=== PATIENT | male | born 1965 | race Caucasian/White ===

== ENCOUNTER → 2021-01-17 09:56 | Outpatient (BNVA) | payer MEDICARE, SELFPAY | PROVIDERS: Visit Provider Registered Nurse | DX: Z79.899 Other long term (current) drug therapy (principal) | CPT/HCPCS: 36415; 80053; 80061; 80164; 82306; 83036; 84443 ==

== ENCOUNTER → 2022-04-16 08:56 | Outpatient (BNVA) | payer MEDICARE, SELFPAY | PROVIDERS: Visit Provider Registered Nurse | DX: Z79.899 Other long term (current) drug therapy (principal) | CPT/HCPCS: 80053; 80061; 80164; 83036; 85025 ==

== ENCOUNTER 2023-01-10 08:59 | Emergency (ER) | payer MEDICARE, MEDICAID, SELFPAY ==
[2023-01-10 09:06] VITALS: BP 171/112; PULSE 75; RESP 16; O2SAT 99; BMI 29.2
--- NOTE | 2023-01-10 09:17 | XR_ITS ---
WS: [id number] XR chest 1V portable [id number] REASON FOR EXAM: COPD FINDINGS: Except for increased tortuosity of the thoracic aorta, the chest is relatively unchanged compared to 03/22/2007. Moderate tortuosity of the thoracic aorta. Calcified granulomas disease bilaterally. Mild flattening of the hemidiaphragms. No acute pulmonary parenchymal or pleural abnormality. Mild to moderate degenerative spondylosis in the mid and lower thoracic spine. IMPRESSION: No acute chest abnormality
--- NOTE | 2023-01-10 09:17 | CT_ITS ---
WS: [id number] CT ABDOMEN PELVIS TECHNIQUE: Contrast-enhanced CT of the abdomen and pelvis with coronal and sagittal reformatted image s. CLINICAL INFORMATION: upper abd pain COMPARISON: 2006 DLP: 807.[address] scans at [facility] use at least one of these dose optimization techniques: automated e xposure control; mA and/or kV adjustment per patient size (includes targeted exams where dose is matc hed to clinical indication); or iterative reconstruction. FINDINGS: Lung bases are well aerated. Diffuse fatty filtration of the liver. Fluid distended gallbladder. No g allbladder wall thickening or pericholecystic fluid. Normal portal vein and splenic vein. Fatty atrop hy of the pancreas. Normal spleen. Normal GE junction. Adrenal glands are normal. Celiac and SMA are patent. Normal caliber abdominal aorta. Adrenal glands are normal. Normal renal parenchymal enhancement. Moderate hydronephrosis right kidney with dilatation of the right renal pelvis and calyces. This is similar in appearance compared to 200 6. No visualized obstructing right renal parenchymal or ureteral calculi. Nonobstructing right renal parenchymal calculus measuring 8 mm. No hydronephrosis in the left kidney. Large midline fat-containing umbilical hernia. Hernia mouth measures 3.2 cm. No herniated bowel. Urine distended bladder. Mild prominence of the prostate. Sigmoid diverticulosis. No evidence of acut e diverticulitis. Colon is normal in appearance. Mild distention of a few loops of fluid-filled small bowel in the left upper quadrant and left mid an d lower abdomen with mucosal enhancement can be seen with small bowel enteritis. No evidence of high- grade obstruction. IMPRESSION: 1. Moderate right hydronephrosis with right pelvicaliectasis and ureterectasis was present in 2006 w ith a similar appearance. No obstructing renal or ureteral calculi visualized. 2. Fluid distention of the gallbladder which is otherwise normal in appearance. 3. Prominent fat-containing umbilical hernia with widemouth defect measuring 3.2 cm. 4. Mild prominence of fluid filled small bowel in the left upper quadrant and left lower abdomen/pel vis with mucosal enhancement suspicious for small bowel enteritis. No evidence of small or large cele l obstruction.
--- NOTE | 2023-01-10 09:20 | W.ED.ABDPA2 ---
HPI - Abdominal Pain General: Chief Complaint: Abdominal Pain Stated Complaint: abd pain Time Seen by Provider: 01/10/23 09:07 Source: patient Mode of arrival: ambulatory Limitations: no limitations History of Present Illness: 57yo male presents with upper abdominal pain that has been ongoing for the past 1.5 weeks. Patient reports he had a bleeding ulcer in the past. States that he did have vomiting, but has not had any for the past 3 days. Patient is unable to provide descriptors of the pain. He denies fever, chills, diarrhea, black/tarry stool, bloody stool, use of blood thinners. Patient does report that he has a history of a right kidney stent back in 1994. Associated Symptoms: Denies chills, diarrhea, dysuria, fever(s), hematochezia, melena and vomiting Review of Systems Const: Denies: fever(s), chills or body aches Card: Denies: chest pain Resp: Denies: dyspnea GI: Reports: abdominal pain; Denies: vomiting, diarrhea, hematochezia or melena : Denies: flank pain, difficulty urinating or dysuria Musc: Denies: neck pain Neuro: Denies: headache(s) PFSH ED PFSH: Medical History (Updated 01/10/23 @ 11:01 by BHAKTI Up) Bipolar affective disorder, depressed, severe, with psychotic behavior Mild intellectual disabilities Nicotine dependence, cigarettes, with other nicotine-induced disorders Social History (Updated 06/29/19 @ 09:25 by Roseann Cameron LPN) Smoking and tobacco status: current every day smoker cigarettes Physical Exam Narrative: EXAM NARRATIVE: Patient is ambulatory to the exam room unassisted. He is sitting upright on stretcher in no acute distress. He is able to give history with no difficulty. No family is at bedside Const: COMMON NORMALS: no acute distress and alert GENERAL APPEARANCE: cooperative ORIENTATION/CONSCIOUSNESS: Yes awake HENMT: COMMON NORMALS: normocephalic and Normal external nose present HEAD & SCALP: normocephalic NOSE: Normal external nose present MOUTH: lip normal Eye: COMMON NORMALS: conjunctivae normal GENERAL EYE: appearance normal, both eyes and all related structures CONJUNCTIVA: Yes conjunctivae normal Neck/C-Spine: COMMON NORMALS: full ROM Chest: CHEST: Yes Symmetrical chest wall rise Resp: COMMON NORMALS: normal respiratory effort AUSCULTATION: wheezes scattered wheezes Cardio: COMMON NORMALS: regular rate and regular rhythm RATE: regular rate RHYTHM: regular rhythm GI: COMMON NORMALS: Soft to palpation INSPECTION: Yes visible herniation (umbilicus) PALPATION: Yes Soft to palpation, Yes Tenderness to palpation present (GI) Details: LUQ and RUQ and No Guarding due to palpation present (GI) : COMMON NORMALS: No no CVA tenderness BLADDER/KIDNEY EXAM: No no CVA tenderness Back/Pelvis: COMMON NORMALS: negative for no CVA tenderness and negative for thoraco-lumbar ROM normal Extremity: COMMON NORMALS: full ROM Neuro: COMMON NORMALS: moves all extremities SENSORIUM/ORIENTATION: Yes alert Psych: COMMON NORMALS: cooperative Course ED course: 1035: Bedside Hemoccult negative Reevaluation(s): Reevaluation #1: Discussed lab and imaging findings with patient. Completed Hemoccult, negative. Will proceed with dicyclomine for the abdominal discomfort Time: 10:35 Vital Signs: Vital signs: Vital Signs Pulse Rate 75 01/10/23 09:06 Respiratory Rate 16 01/10/23 09:06 Blood Pressure 171/112 01/10/23 09:06 Pulse Oximetry 99 01/10/23 09:06 Oxygen Delivery Me thod Room Air 01/10/23 09:06 MDM - Abdominal Pain Medical Decision Making 57yo male here for upper abdominal pain that has been ongoing for the past 1.5 weeks. Patient reports that he did have vomiting, but has not had any in the past 3 days. Patient is unable to describe the pain, but does report it goes across his upper abdomen. States that he has a history of a bleeding ulcer. He denies fever, chills, body aches, difficulty breathing, shortness of breath, chest pain, use of blood thinners, blood in his stool, dark/tarry stool. Patient is nontoxic in appearance. Vital signs are stable. Differentials include: Intestinal obstruction, gastritis, viral infection, incarcerated hernia, pancreatitis CBC is grossly unremarkable. CMP with a very mildly elevated sodium at 147, otherwise unremarkable. UA With an elevated pH of 8 and 3+ blood. PT is noted to be 15 seconds with an INR 1.14. Chest x-ray with no acute pulmonary or pleural abnormality. Mild to moderate degenerative spondylosis noted in the thoracic spine. Calcified granulomas bilaterally. Tortuosity of the thoracic aorta noted. Contrasted CTAP with a chronic moderate right hydronephrosis that was present in 2005, fluid distention of the gallbladder, prominent fat-containing umbilical hernia, mild prominence of fluid-filled small bowel suspicious for enteritis. No evidence of small or large bowel obstruction. Bedside hemoccult negative discussed findings with patient and family. Patient did receive dicyclomine while in the emergency department. Dicyclomine prescribed to help with the abdominal discomfort. Albuterol prescribed for wheezing, likely related to chronic tobacco use. Ondansetron prescribed for nausea. Recommend he follow-up with primary care, call Friday with an update of symptoms and to discuss recheck. Advised to return to the emergency department if any rapid worsening symptoms and as needed. Differential Diagnosis Likely abdominal pain and small bowel obstruction Lab Data I reviewed the patient's lab results. 01/10/23 09:10 01/10/23 09:10 Labs/Radiology: Laboratory Results WBC 8.6 10^3/uL (4.0-10.0) 01/10/23 09:10 RBC 5.03 10^6/uL (4.1-5.3) 01/10/23 09:10 Hgb 15.0 g/dL (11.7-16.6) 01/10/23 09:10 Hct 46.4 % (42.0-52.0) 01/10/23 09:10 MCV 92.2 fl (80-94) 01/10/23 09:10 MCH 29.8 pg (28.0-34.0) 01/10/23 09:10 MCHC 32.3 g/dL (30.0-36.0) 01/10/23 09:10 RDW 12.5 % (12.1-15.1) 01/10/23 09:10 Plt Count 194 10^3/cmm (130-400) 01/10/23 09:10 MPV 11.1 fL (7.4-10.4) H 01/10/23 09:10 Neut % (Auto) 58.5 % 01/10/23 09:10 Lymph % (Auto) 28.8 % 01/10/23 09:10 [place] % (Auto) 7.8 % 01/10/23 09:10 Eos % (Auto) 3.4 % 01/10/23 09:10 Baso % (Auto) 1.0 % 01/10/23 09:10 Neut # (Auto) 5.03 10^3/uL (1.8-7.7) 01/10/23 09:10 Lymph # (Auto) 2.5 10^3/uL (0.8-4.8) 01/10/23 09:10 [place] # (Auto) 0.7 10^3/uL (0.2-0.9) 01/10/23 09:10 Eos # (Auto) 0.3 10^3/uL (0.0-0.8) 01/10/23 09:10 Baso # (Auto) 0.1 10^3/uL (0.0-0.1) 01/10/23 09:10 Nucleated RBC % (auto) 0 % 01/10/23 09:10 Nucleated RBCs # 0.0 /100WBC 01/10/23 09:10 PT 15.00 SECONDS (12.1-14.9) H 01/10/23 09:10 INR 1.14 (0.8-1.2) 01/10/23 09:10 APTT 41.2 SECONDS (23.9-36.7) H 01/10/23 09:10 Sodium 147 mmol/L (136-145) H 01/10/23 09:10 Potassium 4.0 mmol/L (3.5-5.1) 01/10/23 09:10 Chloride 109 mmol/L (98-107) H 01/10/23 09:10 Carbon Dioxide 27 mmol/L (22-29) 01/10/23 09:10 Anion Gap 15.0 (5-19) 01/10/23 09:10 BUN 19 mg/dL (6-20) 01/10/23 09:10 Creatinine 0.8 mg/dL (0.7-1.2) 01/10/23 09:10 GFR Calculation 99.3 mL/min (90-130) 01/10/23 09:10 Glucose 113 mg/dL (65-115) 01/10/23 09:10 Calculated Osmolality 307 mOsm/kg (285-295) H 01/10/23 09:10 Calcium 8.9 mg/dL (8.5-10.5) 01/10/23 09:10 Total Bilirubin 0.4 mg/dL (0.15-1.2) 01/10/23 09:10 AST 17 U/L (0-40) 01/10/23 09:10 ALT 14 U/L (0-41) 01/10/23 09:10 Alkaline Phosphatase 94 U/L (40-130) 01/10/23 09:10 Total Protein 6.9 g/dL (6.6-8.7) 01/10/23 09:10 Albumin 4.6 g/dL (3.5-5.2) 01/10/23 09:10 Globulin 2.3 g/dL (1.3-4.6) 01/10/23 09:10 Lipase 17 U/L (13-60) 01/10/23 09:10 Urine Color Yellow (Yellow) 01/10/23 09:48 Urine Appearance Clear (CLEAR) 01/10/23 09:48 Urine pH 8 (5-7) H 01/10/23 09:48 Ur Specific [employer] 1.005 (1.005-1.030) 01/10/23 09:48 Urine Protein Neg (Negative) 01/10/23 09:48 Urine Glucose (UA) Norm (Normal) 01/10/23 09:48 Urine Ketones Negative (Negative) 01/10/23 09:48 Urine Blood 3+ (Negative) H 01/10/23 09:48 Urine Nitrate Negative (Negative) 01/10/23 09:48 Urine Bilirubin Neg (Negative) 01/10/23 09:48 Prot Sulfosalicylic Acd Negative (Negative) 01/10/23 09:48 Urine Urobilinogen Norm mg/dL (Negative) 01/10/23 09:48 Ur Leukocyte Esterase Negative (Negative) 01/10/23 09:48 Urine RBC 0-4 /hpf (0-2) H 01/10/23 09:48 Urine WBC 0-4 /hpf (0-5) H 01/10/23 09:48 Ur Squamous Epith Cells 0-4 /hpf (0-5) H 01/10/23 09:48 Amorphous Sediment Not Reportable 01/10/23 09:48 Urine Bacteria Trace /hpf (NONE) 01/10/23 09:48 Discharge Plan Discharge Patient Disposition: Home Clinical Impression: Enteritis, Wheezing without diagnosis of asthma Condition: Stable Prescriptions: New dicyclomine 10 mg capsule 10 mg PO TID PRN (Reason: abdominal pain) Qty: 20 0RF ondansetron 4 mg tablet,disintegrating 4 mg PO Q8H PRN (Reason: nausea and vomiting) Qty: 10 0RF albuterol sulfate 90 mcg/actuation HFA aerosol inhaler 1 inh inhalation Q4H PRN (Reason: shortness of breath or wheezing) Qty: 8.5 0RF No Action acetaminophen-codeine 300-30 mg tablet 1 tab PO BID montelukast [Singulair] 10 mg tablet 10 mg PO DAILY amlodipine [Norvasc] 5 mg tablet 5 mg PO DAILY pantoprazole [Protonix] 40 mg tablet,delayed release (DR/EC) 40 mg PO DAILY rosuvastatin [Crestor] 20 mg tablet 20 mg PO DAILY All Day Allergy (cetirizine) 10 mg capsule 10 mg PO DAILY divalproex 250 mg tablet extended release 24 hr See Rx Instructions .ROUTE .COMPLEX 90 Days Qty: 270 1RF Dose Instruction: TAKE 1 TABLET BY MOUTH EACH MORNING AND TAKE 2 AT BEDTIME Rx Instructions: TAKE 1 TABLET BY MOUTH EACH MORNING AND TAKE 2 AT BEDTIME meloxicam 15 mg tablet 15 mg PO DAILY lisinopril 40 mg tablet 40 mg PO .EVENING fenofibrate nanocrystallized 145 mg tablet 145 mg PO DAILY aripiprazole 30 mg tablet 30 mg PO DAILY topiramate 50 mg tablet 50 mg PO DAILY Discharge Orders: Discharge ED (Routine); Ordered 01/10/23 Ordered By: Elvis Dozier Referrals: Manju Vaughn [Primary Care Provider] - Discharge Diet: Usual diet Discharge Activity: Resume usual activity Patient Instructions: Wheezing (ED), Enteritis (ED) Activity Restrictions/Additional Instructions: Dicyclomine has been prescribed for the abdominal discomfort related to enteritis Albuterol inhaler has been prescribed for the wheezing Follow-up with your doctor, call Friday with an update of symptoms and to discuss a recheck Return to the emergency department if any rapid worsening symptoms, difficulty breathing, shortness of breath, chest pain, and as needed Coding Level of Care Code ED Receiving Inspector for Myron Gonzales
[2023-01-10 09:24] LABS: Basophils # 0.1 10^3/uL (0.0-0.1); Eosinophils # 0.3 10^3/uL (0.0-0.8); Eosinophils % 3.4 %; Hematocrit 46.4 % (42.0-52.0); Lymphocytes # 2.5 10^3/uL (0.8-4.8); Lymphocytes % 28.8 %; Mean Corpuscular HGB Conc 32.3 g/dL (30.0-36.0); Mean Corpuscular Hemoglobin 29.8 pg (28.0-34.0); Mean Corpuscular Volume 92.2 fl (80-94); Mean Platelet Volume 11.1 fL (7.4-10.4); Monocytes # 0.7 10^3/uL (0.2-0.9); Monocytes % 7.8 %; Neutrophils # 5.03 10^3/uL (1.8-7.7); Neutrophils % 58.5 %; Nucleated Red Blood Cells % 0 %; Platelet Count 194 10^3/cmm (130-400); Red Blood Count 5.03 10^6/uL (4.1-5.3); Red Cell Distribution Width 12.5 % (12.1-15.1); White Blood Count 8.6 10^3/uL (4.0-10.0)
[2023-01-10 09:29] LABS: INR 1.14 (0.8-1.2)
[2023-01-10 09:30] LABS: Partial Thromboplastin Time 41.2 SECONDS (23.9-36.7)
[2023-01-10] MEDS: iohexol 350 mg/mL 500 mL Btl (per mL) IV (09:43)
[2023-01-10 09:48] LABS: Alanine Aminotransferase 14 U/L (0-41); Albumin Level 4.6 g/dL (3.5-5.2); Alkaline Phosphatase 94 U/L (40-130); Aspartate Amino Transferase 17 U/L (0-40); Blood Urea Nitrogen 19 mg/dL (6-20); Calcium 8.9 mg/dL (8.5-10.5); Carbon Dioxide 27 mmol/L (22-29); Chloride 109 mmol/L (98-107); Globulin 2.3 g/dL (1.3-4.6); Glomerular Filtration Rate 99.3 mL/min (90-130); Glucose 113 mg/dL (65-115); Lipase 17 U/L (13-60); Osmolality Calculated 307 mOsm/kg (285-295); Sodium 147 mmol/L (136-145); Total Bilirubin 0.4 mg/dL (0.15-1.2); Total Protein 6.9 g/dL (6.6-8.7)
[2023-01-10 10:10] LABS: Urine Appearance Clear (CLEAR); Urine Color Yellow (Yellow)
[2023-01-10 10:11] LABS: Add Urine Culture? No; Add Urine Microscopic? YES; Bacteria Urine TRACE /hpf; Bilirubin Urine Neg (Negative); Blood Urine 3+ (Negative); Glucose Urine UA Norm (Normal); Ketones Urine Negative (Negative); Leukocyte Esterase Urine Negative (Negative); Nitrate Urine Negative (Negative); Protein Urine Neg (Negative); RBC Urine 0-4 /hpf (0-2); Specific Gravity, Urine 1.005 (1.005-1.030); Squamous Epithelial Cell Urine 0-4 /hpf (0-5); Sulfosalicylic Acid Urine Negative (Negative); Urobilinogen Urine Norm (Negative); WBC Urine 0-4 /hpf (0-5); pH Urine 8 (5-7)
[2023-01-10] MEDS: dicyclomine 20 mg Tablet PO (11:05)
== END 2023-01-10 11:14 | disposition home or self-care (01) ==
PROVIDERS: Emergency Provider Nurse Practitioner; PCP Nurse Practitioner Family
DX: K52.9 Noninfective gastroenteritis and colitis, unspecified (principal); F17.210 Nicotine dependence, cigarettes, uncomplicated
CPT/HCPCS: 12345; 71045; 74177; 80053; 81001; 82272; 83690; 85025; 85610; 85730; 99285; Q9967

== ENCOUNTER 2023-07-10 07:52 | Emergency (ER) | payer MEDICARE, MEDICAID, SELFPAY ==
[2023-07-10 08:01] VITALS: BP 159/99; PULSE 79; RESP 18; TEMP 36.6; O2SAT 98; BMI 26.3
--- NOTE | 2023-07-10 08:14 | ED_ITS ---
HPI - Nausea/Vomiting/Diarrhea 2 General: Chief complaint: Nausea/Vomiting/Diarrhea Stated complaint: n,v, abd pain Time Seen by Provider: 07/10/23 07:54 Source: patient Mode of arrival: ambulatory History of Present Illness: 57-year-old male presents emergency room with 2 weeks of nausea and vomiting. Patient has a history of kidney stones denies dysuria urgency or frequency. No hematuria. Is also concerned about hernia at the middle of his abdomen. MD elicited complaint: nausea and vomiting Onset (ago): week(s) (2) Description of vomiting: bilious Description of diarrhea: semi-solid Associated nausea: No Location of pain: RUQ Severity: moderate Quality: cramping Exacerbating factors: none Relieving factors: none Associated symtoms: Denies anxiety, bloating, change in vision, chest pain, cough, diaphoresis, decreased urine output, dizziness, dysuria, epistaxis, fatigue, fecal incontinence, fevers/chills, headache(s), anorexia, malaise, myalgias, nausea, numbness, palpitations, rash, short of breath, syncope, tenesmus, tinnitus or weakness Review of Systems 2 Const: Denies: fever(s), chills, fatigue, malaise or diaphoresis Eyes: Denies: change in vision ENMT: Denies: tinnitus or epistaxis Card: Denies: chest pain, palpitations or syncope Resp: Denies: dyspnea GI: Denies: abdominal pain, nausea, bloating or fecal incontinence : Denies: dysuria, urinary frequency or urinary urgency Musc: Denies: neck pain or back pain Skin/Breast: Denies: rash Neuro: Denies: headache(s) or dizziness Psych: Denies: anxiety PFSH ED 2 PFSH: Medical History Nicotine dependence, cigarettes, with other nicotine-induced disorders Mild intellectual disabilities Bipolar affective disorder, depressed, severe, with psychotic behavior Social History Smoking and tobacco/nicotine status: current every day tobacco/nicotine user cigarettes Physical Exam 2 Const: GENERAL APPEARANCE: cooperative and comfortable O RIENTATION/CONSCIOUSNESS: Yes awake, Yes oriented to person, Yes oriented to place and Yes oriented to time HENMT: COMMON NORMALS: normocephalic, atraumatic and hearing grossly normal bilaterally HEAD & SCALP: normocephalic and atraumatic Resp: COMMON NORMALS: normal respiratory effort, No retractions, No use of accessory muscles and clear to auscultation bilaterally AUSCULTATION: clear to auscultation bilaterally Cardio: COMMON NORMALS: regular rate, regular rhythm and No murmurs present (Cardio) RATE: regular rate RHYTHM: regular rhythm GI: COMMON NORMALS: No hepatosplenomegaly present AUSCULTATION: Yes normoactive bowel sounds PALPATION: Yes Tenderness to palpation present (GI) Details: RUQ, No Guarding due to palpation present (GI) and Yes No hepatosplenomegaly present OTHER: Rectus diastasis noted on abdominal exam with Valsalva maneuver. : COMMON NORMALS: Yes no CVA tenderness BLADDER/KIDNEY EXAM: Yes no CVA tenderness Back/Pelvis: COMMON NORMALS: no CVA tenderness Extremity: COMMON NORMALS: normal to inspection, capillary refill normal, no clubbing, cyanosis or edema, no calf tenderness and no pedal edema Neuro: SENSORIUM/ORIENTATION: Yes oriented to person, Yes oriented to place and Yes oriented to time Skin: COMMON NORMALS: no rashes or lesions noted GENERAL SKIN EXAM: no rashes or lesions noted Course 2 Vital Signs: Vital signs: Vital Signs Temperature 97.8 F 07/10/23 08:01 Pulse Rate 79 07/10/23 08:30 Respiratory Rate 18 07/10/23 08:30 Blood Pressure 159/99 07/10/23 08:30 Pulse Oximetry 98 07/10/23 08:30 Oxygen Delivery Me thod Room Air 07/10/23 08:30 MDM - Nausea/Vomiting/Diarrhea Medical Decision Making Prominence in the right renal pelvis appears to be potential soft tissue. He will need referral to urology for further evaluation. Nausea and vomiting improved while here. Clinical 24 hours and advance diet. Requested case management for referral to urology. Medical Records I reviewed the patient's medical records. Lab Data I reviewed the patient's lab results. 07/10/23 08:22 07/10/23 08:22 Laboratory Results WBC 7.44 10^3/uL (3.29-11.43) 07/10/23 08:22 RBC 4.54 10^6/uL (3.85-5.65) 07/10/23 08:22 Hgb 13.80 g/dL (11.27-16.99) 07/10/23 08:22 Hct 41.4 % (37-53) 07/10/23 08:22 MCV 91.2 fl (82-101) 07/10/23 08:22 MCH 30.4 pg (27-33) 07/10/23 08: MCHC 33.3 g/dL (30-55) 07/10/23 08:22 RDW 12.6 % (12.1-15.1) 07/10/23 08:22 Plt Count 170 10^3/cmm (157-399) 07/10/23 08:22 MPV 10.7 fL (7.4-10.4) H 07/10/23 08:22 Neut % (Auto) 60.1 % 07/10/23 08: Lymph % (Auto) 27.6 % 07/10/23 08:22 [place] % (Auto) 7.5 % 07/10/23 08:22 Eos % (Auto) 3.6 % 07/10/23 08:22 Baso % (Auto) 0.8 % 07/10/23 08:22 Neut # (Auto) 4.47 10^3/uL (1.8-7.7) 07/10/23 08: Lymph # (Auto) 2.1 10^3/uL (0.8-4.8) 07/10/23 08:22 [place] # (Auto) 0.6 10^3/uL (0.2-0.9) 07/10/23 08:22 Eos # (Auto) 0.3 10^3/uL (0.0-0.8) 07/10/23 08:22 Baso # (Auto) 0.1 10^3/uL (0.0-0.1) 07/10/23 08:22 Nucleated RBC % (auto) 0 % 07/10/23 08: Nucleated RBCs # 0.0 /100WBC 07/10/23 08:22 Sodium 144 mmol/L (136-145) 07/10/23 08:22 Potassium 3.6 mmol/L (3.5-5.1) 07/10/23 08:22 Chloride 109 mmol/L (98-107) H 07/10/23 08:22 Carbon Dioxide 23 mmol/L (22-29) 07/10/23 08:22 Anion Gap 15.6 (5-19) 07/10/23 08:22 BUN 13 mg/dL (6-20) 07/10/23 08:22 Creatinine 0.7 mg/dL (0.7-1.2) 07/10/23 08:22 GFR Calculation 115.8 mL/min (90-130) 07/10/23 08:22 Glucose 100 mg/dL (65-115) 07/10/23 08:22 Calculated Osmolality 298 mOsm/kg (285-295) H 07/10/23 08:22 Calcium 8.6 mg/dL (8.5-10.5) 07/10/23 08:22 Total Bilirubin 0.3 mg/dL (0.15-1.2) 07/10/23 08:22 AST 18 U/L (0-40) 07/10/23 08:22 ALT 16 U/L (0-41) 07/10/23 08:22 Alkaline Phosphatase 89 U/L (40-130) 07/10/23 08:22 Total Protein 6.4 g/dL (6.6-8.7) L 07/10/23 08:22 Albumin 4.0 g/dL (3.5-5.2) 07/10/23 08:22 Globulin 2.4 g/dL (1.3-4.6) 07/10/23 08:22 Lipase 38 U/L (13-60) 07/10/23 08:22 Urine Color Colorless (Yellow) 07/10/23 08:35 Urine Appearance Clear (CLEAR) 07/10/23 08:35 Urine pH 7 (5-7) 07/10/23 08:35 Ur Specific [place] 1.010 (1.005-1.030) 07/10/23 08:35 Urine Protein Neg (Negative) 07/10/23 08:35 Urine Glucose (UA) Norm (Normal) 07/10/23 08:35 Urine Ketones Negative (Negative) 07/10/23 08:35 Urine Blood Neg (Negative) 07/10/23 08:35 Urine Nitrate Negative (Negative) 07/10/23 08:35 Urine Bilirubin Neg (Negative) 07/10/23 08:35 Urine Urobilinogen Norm mg/dL (Negative) 07/10/23 08:35 Ur Leukocyte Esterase Negative (Negative) 07/10/23 08:35 All radiology interpretation(s) finalized by discharge Discharge Plan Discharge Patient Disposition: Home Clinical Impression: Abdominal pain, Nausea and vomiting, Prominent renal pelvis Condition: Stable Prescriptions: New promethazine 25 mg tablet 25 mg PO Q6H PRN (Reason: nausea and vomiting) Qty: 20 0RF No Action montelukast [Singulair] 10 mg tablet 10 mg PO QAM amlodipine [Norvasc] 5 mg tablet 5 mg PO QAM pantoprazole [Protonix] 40 mg tablet,delayed release (DR/EC) 40 mg PO QAM rosuvastatin [Crestor] 20 mg tablet 20 mg PO BEDTIME meloxicam 15 mg tablet 15 mg PO QAM fenofibrate nanocrystallized 145 mg tablet 145 mg PO BEDTIME topiramate 50 mg tablet 50 mg PO QAM Zyrtec 10 mg Tablet 10 mg PO QAM lisinopril 20 mg tablet 20 mg PO BID ondansetron HCl 4 mg tablet 4 mg PO Q4H PRN (Reason: Nausea) acetaminophen-codeine 300-60 mg tablet 1 tab PO Q12H PRN (Reason: Pain) divalproex 250 mg tablet extended release 24 hr 750 mg PO BEDTIME albuterol sulfate 90 mcg/actuation HFA aerosol inhaler 2 inh inhalation Q6H PRN (Reason: shortness of breath or wheezing) aripiprazole 30 mg tablet 30 mg PO BEDTIME Discharge Orders: Discharge ED (Routine); Ordered 07/10/23 Ordered By: Jayjay Guerrero Referrals: Manju Vaughn [Primary Care Provider] - Discharge Diet: Usual diet Discharge Activity: Increase activity as tolerated Patient Instructions: Low Fat Diet (ED), Abdominal Pain (ED), Opioid Safety, Pain Management Activity Restrictions/Additional Instructions: Thank you for choosing [facility] for your healthcare needs today. Please realize this is an emergency room and that we are providing you with a medical screening exam and this may not be complete and all inclusive of all the testing and or work up that you may need to determine your ailment or severity of your illness. It is very important that you follow up as instructed or that you return to the Emergency Department should you have concerns or if your condition changes or worsens in any way. You were seen today for abdominal pain with persistent nausea vomiting. No clinically significant laboratory tests. Gallbladder ultrasound was negative CT showed some abnormal thickening in the right renal pelvis that should be evaluated further by urology and mental health case manager will make arrangements for urology referral. If your symptoms persist you may need further evaluation for your gallbladder including a possible HIDA scan (this route evaluates for biliary dysfunction). Coding Level of Care Code ED Refining Supervisor for Myron Gonzales
--- NOTE | 2023-07-10 08:22 | US_ITS ---
WS: [id number] ULTRASOUND ABDOMEN LIMITED CLINICAL INFORMATION: abd pain, N/V COMPARISON: None. FINDINGS: Liver Size: Upper limits of normal Craniocaudal length: 16.6 cm. Echogenicity: Normal. Surface nodularity: None. Mass (size and location): None. Bile ducts Intrahepatic ducts: Normal. Common bile duct diameter: 0.6 cm. Gallbladder Normal. Gallstones: None. Gallbladder sludge: None. Gallbladder wall thickening: None. Pericholecystic fluid: None. Sonographic Loja sign: Absent. Pancreas Normal as visualized. Right kidney: Moderate hydronephrosis Hydronephrosis: Moderate Size: 12.5 cm x 6.3 cm x 6.4 cm. Abdominal aorta and IVC Visualized portions are normal. Ascites: None. IMPRESSION: 1. Moderate RIGHT hydronephrosis. 2. Normal gallbladder 3. Remainder normal.
--- NOTE | 2023-07-10 08:23 | ECG_ITS ---
[facility] Test Date: 2023-07-10 Pat Name: Joseluis Lomax Department: Room: Gender: Male Mechanical Intern: : 1965 Requested By: Jayjay Magallon Order Number: [id number] Misti MD: Que Basurto M.D. Measurements Intervals [place] Rate: 76 P: 59 RI: 170 QRS: 63 QRSD: 90 T: 71 QT: 369 QTc: 417 Interpretive Statements SINUS RHYTHM No previous ECG available for comparison Electronically Signed On 07-10-2023 11:38:37 LINING FOLDER by Que Basurto M.D. [email or web address]
[2023-07-10] MEDS: sodium chloride 0.9% 1,000 ML 999 ML IV (08:26)
[2023-07-10] MEDS: ondansetron 2 mg/ML SDV 2 mL 4 MG IVP (08:26)
[2023-07-10 08:28] LABS: Basophils # 0.1 10^3/uL (0.0-0.1); Basophils % 0.8 %; Eosinophils # 0.3 10^3/uL (0.0-0.8); Eosinophils % 3.6 %; Hematocrit 41.4 % (37-53); Lymphocytes # 2.1 10^3/uL (0.8-4.8); Lymphocytes % 27.6 %; Mean Corpuscular HGB Conc 33.3 g/dL (30-55); Mean Corpuscular Hemoglobin 30.4 pg (27-33); Mean Corpuscular Volume 91.2 fl (82-101); Mean Platelet Volume 10.7 fL (7.4-10.4); Monocytes # 0.6 10^3/uL (0.2-0.9); Monocytes % 7.5 %; Neutrophils # 4.47 10^3/uL (1.8-7.7); Neutrophils % 60.1 %; Nucleated Red Blood Cells % 0 %; Platelet Count 170 10^3/cmm (157-399); Red Blood Count 4.54 10^6/uL (3.85-5.65); Red Cell Distribution Width 12.6 % (12.1-15.1); White Blood Count 7.44 10^3/uL (3.29-11.43)
[2023-07-10 08:30] VITALS: BP 159/99; PULSE 79; RESP 18; O2SAT 98
[2023-07-10 08:36] LABS: Add Urine Microscopic? NO; Charge for UA Resulting for Rev
[2023-07-10 08:48] LABS: Bilirubin Urine Neg (Negative); Blood Urine Neg (Negative); Glucose Urine UA Norm (Normal); Ketones Urine Negative (Negative); Leukocyte Esterase Urine Negative (Negative); Nitrate Urine Negative (Negative); Protein Urine Neg (Negative); Urine Appearance Clear (CLEAR); Urine Color Colorless (Yellow); Urobilinogen Urine Norm (Negative); pH Urine 7 (5-7)
[2023-07-10 08:53] LABS: Alanine Aminotransferase 16 U/L (0-41); Alkaline Phosphatase 89 U/L (40-130); Anion Gap 15.6 (5-19); Aspartate Amino Transferase 18 U/L (0-40); Blood Urea Nitrogen 13 mg/dL (6-20); Calcium 8.6 mg/dL (8.5-10.5); Carbon Dioxide 23 mmol/L (22-29); Chloride 109 mmol/L (98-107); Globulin 2.4 g/dL (1.3-4.6); Glomerular Filtration Rate 115.8 mL/min (90-130); Glucose 100 mg/dL (65-115); Lipase 38 U/L (13-60); Osmolality Calculated 298 mOsm/kg (285-295); Potassium 3.6 mmol/L (3.5-5.1); Sodium 144 mmol/L (136-145); Total Bilirubin 0.3 mg/dL (0.15-1.2); Total Protein 6.4 g/dL (6.6-8.7)
--- NOTE | 2023-07-10 09:05 | CT_ITS ---
WS: [id number] CT ABDOMEN PELVIS TECHNIQUE: Noncontrast CT of the abdomen and pelvis with coronal and sagittal reformatted images. CLINICAL INFORMATION: Abdominal pain COMPARISON: 01/10/2023 DLP: 733.[address] scans at [facility] use at least one of these dose optimization techniques: automated e xposure control; mA and/or kV adjustment per patient size (includes targeted exams where dose is matc hed to clinical indication); or iterative reconstruction. FINDINGS: Moderate RIGHT hydronephrosis with pelvicaliectasis and ureterectasis is stable in appearance. Nonobs tructing RIGHT calyceal tip calculi. Area of soft tissue thickening in the RIGHT inferior renal pelvi s adjacent to the calculus measuring 1.8 cm. Recommend urology consultation and further evaluation fo r TCC. Associated calcifications in this area. Area of soft tissue thickening demonstrates enhancemen t on the prior CT 01/10/2023 and is similar in appearance but indeterminate. No hydronephrosis LEFT kidney. Adrenal glands are normal. Normal noncontrast liver. Normal gallbladde r. Normal noncontrast spleen. GE junction is normal in appearance. Calcified granulomas RIGHT lower l obe. Noncontrast pancreas appears normal. Normal GE junction. Sigmoid diverticulosis. Normal caliber abdominal aorta. IMPRESSION: 1. Moderate RIGHT hydronephrosis with RIGHT pelvicaliectasis and ureterectasis similar in appearance . 2. 1.8 cm area of polypoid thickening in the RIGHT inferior renal pelvis and calyx. TCC not excluded . Recommend urology consultation in further evaluation. 3. Stable fat-containing umbilical hernia with a wide mouth defect measuring 3.2 cm. 4. No other acute findings
--- NOTE | 2023-07-15 08:13 | DCPLANNER ---
Sent Urology referral to [facility]- FAX [phone]- Your 25 page fax has been successfully delivered to [phone].
--- NOTE | 2023-07-15 13:04 | DCPLANNER ---
Ede called and said that insurance will only cover [place]- Sent referral to [facility] after speaking with patient.
== END 2023-07-10 11:49 | disposition home or self-care (01) ==
PROVIDERS: Emergency Provider Family Medicine; PCP Nurse Practitioner Family
DX: R10.9 Unspecified abdominal pain (principal); R11.2 Nausea with vomiting, unspecified; N28.89 Other specified disorders of kidney and ureter; F17.210 Nicotine dependence, cigarettes, uncomplicated; M62.08 Separation of muscle (nontraumatic), other site
CPT/HCPCS: 74176; 76705; 80053; 81003; 83690; 85025; 93005; 96361; 96374; 99285; J2405; J7030

== ENCOUNTER → 2023-07-22 10:29 | Outpatient (BNVA) | payer MEDICARE, MEDICAID, SELFPAY | PROVIDERS: PCP Nurse Practitioner Family; Visit Provider Psychiatry & Neurology Psychiatry | DX: Z79.899 Other long term (current) drug therapy (principal) | CPT/HCPCS: 80061; 80164 ==

== ENCOUNTER 2023-10-10 07:30 | Outpatient (CLI) | payer MEDICARE, SELFPAY ==
--- NOTE | 2023-10-10 08:00 | NM_ITS ---
WS: [id number] NUCLEAR MEDICINE HIDA SCAN WITH GALLBLADDER EJECTION FRACTION HISTORY: RUQ PAIN COMPARISON: 07/10/2023 TECHNIQUE: The patient was intravenously injected with 7.4 mCi of TC99m Mebrofenin. Immediate imaging over the right upper quadrant was followed by 5 minute image and additional images for a total of 60 minutes. Normal uptake of radiotracer throughout the liver. Activity identified in the gallbladder at 10 minutes and well distended by 60 minutes. Activity in the proximal small bowel was seen by 10 minutes. Good washout of the radiotracer from the liver by 60 minutes. The patient then drank 8 ounces of Ensure Plus. Ejection fraction at 60 minutes was 87%. Normal GB ej ection fraction is 35-75%. Post fatty meal symptoms: None. NM/NM hepatobiliary w phar* [id number] IMPRESSION: 1. Normal HIDA scan. 2. Normal gallbladder ejection fraction.
== END 2023-10-10 07:31 | disposition home or self-care (01) ==
PROVIDERS: PCP Nurse Practitioner Family; Visit Provider Nurse Practitioner Family
DX: R10.9 Unspecified abdominal pain (principal); R29.898 Other symptoms and signs involving the musculoskeletal system
CPT/HCPCS: 78227; A9537

== ENCOUNTER → 2024-10-04 12:24 | Outpatient (BNVA) | payer MEDICARE, SELFPAY | PROVIDERS: PCP Nurse Practitioner Family; Visit Provider Psychiatry & Neurology Psychiatry | DX: Z79.899 Other long term (current) drug therapy (principal) | CPT/HCPCS: 80053; 80061; 80164; 83036; 84443; 85025 ==

== ENCOUNTER → 2025-01-10 10:15 | Outpatient (BNVA) | payer MEDICARE, SELFPAY | PROVIDERS: PCP Nurse Practitioner Family; Visit Provider Student in an Organized Health Care Education/Training Program | DX: K46.9 Unspecified abdominal hernia without obstruction or gangrene (principal) | CPT/HCPCS: 99204 ==

== ENCOUNTER 2025-02-02 09:11 | Day surgery (SDC) | payer MEDICARE, SELFPAY ==
[2025-02-02] VITALS (11 sets, daily range): BP systolic 116–130; BP diastolic 72–83; PULSE 70–93; RESP 8–20; TEMP 36.4–37; O2SAT 92–100; BMI 27.1
--- NOTE | 2025-02-02 10:16 | ANES.PREANE2 ---
Pre-Anesthetic Assessment Height/Weight: Height 1.83 m Weight 90.718 kg O2 Del Method Room Air 02/02/25 09:55 Operation Date: 02/02/25 10:45 Proposed Procedures p Open Umbilical Hernia Repair w/ Mesh 10175 K46.9(Not Applicable) - Carlos Mejia MD Familial anesthetic complications: None Was Beta Cindi taken within 24 hours: N/A Was Clonidine taken within 24 hours: N/A Last intake: Intake Last Liquid Date 02/01/25 Last Liquid Time 18:00 Last Solid Date 02/01/25 Last Solid Time 18:00 Social Tobacco and No alcohol Exam alert, oriented x 3, clear to auscultation bilaterally and regular rate & rhythm Airway Mallampati: Class II Dentition: other (None) CV/HEM Coronary Artery Disease (3 stents > 1 year ago, no longer on blood thinners) and Hypertension GI Gastroesophageal Reflux Disease Metabolic Hyperlipidemia Anesthetic Plan ASA status: 3 Anesthesia: General Risk of > 500 ml blood loss (7ml/kg in children): No Medications/Allergies Home Medications ?Medication ?Instructions ?Recorded ?Confirmed ?Last Taken ?Type amlodipine 5 mg tablet (Norvasc) 5 mg PO QAM 04/16/22 02/02/25 01/31/25 History montelukast 10 mg tablet 10 mg PO QAM 04/16/22 02/02/25 02/02/25 History (Singulair) pantoprazole 40 mg tablet,delayed 40 mg PO QAM 04/16/22 02/02/25 02/02/25 History release (Protonix) rosuvastatin 20 mg tablet (Crestor) 20 mg PO BEDTIME 04/16/22 02/02/25 02/01/25 History fenofibrate nanocrystallized 145 145 mg PO BEDTIME 01/10/23 02/02/25 02/01/25 History mg tablet meloxicam 15 mg tablet 15 mg PO QAM 01/10/23 02/02/25 07/10/23 History acetaminophen 300 mg-codeine 60 mg 1 tab PO Q12H PRN Pain 07/10/23 02/02/25 01/31/25 History tablet albuterol sulfate 90 mcg/actuation 2 inh inhalation Q6H PRN shortness 07/10/23 02/02/25 01/31/25 History aerosol inhaler of breath or wheezing lisinopril 20 mg tablet 20 mg PO BID 07/10/23 02/02/25 01/31/25 History ondansetron HCl 4 mg tablet 4 mg PO Q4H PRN Nausea 07/10/23 02/02/25 Unknown History promethazine 25 mg tablet 25 mg PO Q6H PRN nausea and 07/10/23 02/02/25 Unknown Rx vomiting #20 tabs aripiprazole 30 mg tablet 30 mg PO BEDTIME #30 tabs 10/04/24 02/02/25 02/01/25 Rx topiramate 50 mg tablet 50 mg PO QAM 30 days #30 tabs 10/04/24 02/02/25 02/01/25 Rx buspirone 5 mg tablet 5 mg PO BID PRN anxiety 30 days 11/29/24 02/02/25 01/23/25 Rx #60 tabs divalproex 250 mg tablet,extended 750 mg PO BEDTIME 02/02/25 02/02/25 02/01/25 History release 24 hr (Depakote ER) Allergies Allergy/AdvReac Type Severity Reaction Status Date / Time Penicillins Allergy Unknown unknown Verified 01/10/25 10:20 [facility] Anesthesia Medical History Psychiatric care Nicotine dependence, cigarettes, with other nicotine-induced disorders Mild intellectual disabilities Bipolar affective disorder, depressed, severe, with psychotic behavior Social History Smoking and tobacco/nicotine status: never used tobacco/nicotine
--- NOTE | 2025-02-02 10:21 | P.HPUD_ITS ---
Surgery/Procedure H&P Update DATE OF PROCEDURE: February 02, 2025 DATE H&P PERFORMED: 01/10/25 H&P UPDATE INFORMATION: I have reviewed H&P completed within last 30 days, I have examined patient prior to procedure and No changes to prior documentation PLANNED PROCEDURE: Operation Date: 02/02/25 10:45 Proposed Procedures p Open Umbilical Hernia Repair w/ Mesh 49394 K46.9(Not Applicable) - Carlos cooper MD
[2025-02-02] MEDS: lidocaine-epi 1% 20 mL INJ INJECTION (11:34)
[2025-02-02] MEDS: BUPivacaine 0.25% INJ 10 mL INJECTION (11:34)
--- NOTE | 2025-02-02 11:48 | PM.OP ---
Operative Report Date of procedure: February 02, 2025 Pre-op diagnosis: Umbilical hernia Post-op diagnosis: same Post-op findings: 4 cm fascial defect umbilical hernia. Hernia sac sent to pathology. Hernia sac contained omentum only which was reduced into the abdomen. Procedure done: Open umbilical hernia repair with mesh Implants: 8.[address] mesh Specimens removed/disposition: Hernia sac sent to pathology Pathology: Hernia sac sent to pathology Surgeon: Carlos Mejia MD Snorkelling Instructor: N/A Anesthesia: General Estimated blood loss (mL): 10 Complications: N/A Findings: 4 cm fascial defect umbilical hernia. Hernia sac sent to pathology. Hernia sac contained omentum only which was reduced into the abdomen. Condition: stable Disposition: same day Brief History: 59-year-old male who presented with a sizable umbilical hernia containing only fat. Discussed risk and benefits and patient agreed to proceed with open umbilical hernia repair with mesh. Procedure: Consent obtained in preop area. Patient brought into the OR. SCDs on working. Patient placed supine. General anesthesia was induced. Prophylactic antibiotics administered. Abdomen prepped and draped in the usual sterile fashion. A periumbilical incision was carried out using a scalpel. Electrocautery was used to dissect down to the subcutaneous tissues. The hernia sac was dissected off the subcutaneous tissues and the skin using electrocautery. I used blunt dissection in order to get around the hernia sac. Hernia sac dissected off the skin using electrocautery. The hernia sac was opened and it contained omentum only. Hernia sac was resected and sent to pathology. The omentum was reduced successfully into the abdomen. The fascial defect measured 4 cm. I freshened up the edges to get a 4 cm overlap with the mesh. I placed an 8.[address] mesh just posterior to the fascial. I closed the fascial deep over the Ventralex ST mesh using 2-0 Ethibond in a running fashion. I incorporated the flaps of the mesh into the closure of the fascia. Excess flap of the mesh was cut. Adequate hemostasis was confirmed. I then closed Ruddy's layer using 3-0 Vicryl in a running fashion. Deep dermal layer was closed using 3-0 Vicryl. 4-0 Monocryl was used in a subcuticular manner to close skin. Surgical glue was applied. A compression dressing was applied. The patient woke up from anesthesia without any complications.
[2025-02-02] MEDS: fentaNYL 50 mcg/mL INJ 2mL IVP (12:20)
--- NOTE | 2025-02-02 13:40 | ANE.PACU2 ---
Inpatient post-anesthesia follow up: Airway intact: Yes Vital signs: Temperature 97.9 F Pulse Rate 77 Respiratory Rate 18 Blood Pressure 129/75 Pulse Oximetry 97 Oxygen Delivery Me thod Room Air Oxygen Flow Rate 8 Fraction of Inspir ed Oxygen Hydration adequate: Yes Nausea and vomiting: No Pain level: 1 Mental status: Baseline
== END 2025-02-02 13:41 | disposition home or self-care (01) ==
PROVIDERS: PCP Nurse Practitioner Family; Visit Provider Student in an Organized Health Care Education/Training Program
PROC: (CPT 49593; principal; 2025-02-02 10:45)
DX: K42.9 Umbilical hernia without obstruction or gangrene (principal); I25.10 Atherosclerotic heart disease of native coronary artery without angina pectoris; Z95.5 Presence of coronary angioplasty implant and graft; I10 Essential (primary) hypertension; K21.9 Gastro-esophageal reflux disease without esophagitis; E78.5 Hyperlipidemia, unspecified; F17.210 Nicotine dependence, cigarettes, uncomplicated; F31.89 Other bipolar disorder
CPT/HCPCS: 49593; 88302; 88304; C1781; J1100; J1885; J2250; J2405; J2704; J3010; J3373; J3490; J7030; J7050; J9999

== ENCOUNTER 2025-02-06 14:22 | Emergency (ER) | payer MEDICARE, SELFPAY ==
--- OUTSIDE RECORDS SUMMARY | 2025-02-06 14:26 | XMS_ITS | Clinical Summary ---
Author Organization [facility] Address [address] [address] Care Team Providers Care Big Data Engineer Name Role Phone Matteo Arciniega MD Primary Care Provider [phone] Medications fenofibrate nanocrystallized (TRICOR) 145 mg tablet Take 145 mg by mouth daily. Active rosuvastatin (Crestor) 20 mg tablet Take 20 mg by mouth daily. Active montelukast (Singulair) 10 mg tablet Take 10 mg by mouth daily at bedtime. Active amLODIPine (NORVASC) 5 mg tablet Take 5 mg by mouth daily. Active pantoprazole (Protonix) 40 mg Tablet, Delayed Release (E.C.) Take 40 mg by mouth daily. Active topiramate (Topamax) 50 mg tablet Take 50 mg by mouth 2 times daily. Active lisinopriL (PRINIVIL) 20 mg tablet Take 20 mg by mouth daily. 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 Gender Identity Not on file Sexual Orientation Not on file Plan of Treatment Health Maintenance Due Date Last Done Comments DTAP/TDAP/TD VACCINES (1 - Tdap) 12/01/1983 COLORECTAL SCREENING 2009 Colorectal Cancer Screening 2009 FIT-DNA Q 3 years 2009 FIT/FOBT Q 1 year 2009 Flex Sig/CT Colonography Q 5 years 2009 ZOSTER VACCINE (1 of 2) 2014 INFLUENZA VACCINE (#1) 2024 RSV VACCINE (60+ or ) (1 - 1-dose 75+ series) 12/01/2039 HEPATITIS B VACCINES Aged Out No long er eligible based on patient's age to complete this topic Insurance [id number] [place] [id number] [facility] Care Teams Big Data Engineer Relationship Specialty Start Date End Date Matteo Arciniega MD [address] [place] [address] [address] [id number] PCP - General 07/12/01
[2025-02-06 14:37] VITALS: BP 153/101; PULSE 89; TEMP 36.6; O2SAT 95
--- NOTE | 2025-02-06 14:47 | CTR_ITS ---
PROCEDURE INFORMATION: Exam: CT Chest With Contrast; Diagnostic Exam date and time: 02/06/2025 3:14 PM Age: 59 years old Clinical indication: Abdominal pain; Periumbilical; Chest pressure; Prior surgery; Surgery date: 3-7 days post-operative; Surgery type: Ventral hernia repair; Additional info: Post-hernia repair, severe abd pain, short of breath TECHNIQUE: Imaging protocol: Diagnostic computed tomography of the chest with contrast. Radiation optimization: All CT scans at this facility use at least one of these dose optimization techniques: automated exposure control; mA and/or kV adjustment per patient size (includes targeted exams where dose is matched to clinical indication); or iterative reconstruction. Contrast material: OMNIPAQUE 350; Contrast volume: 100 ml; Contrast route: INTRAVENOUS (IV); COMPARISON: CR XR chest 1V portable [id number] 01/10/2023 9:32 AM RADIATION DOSE METRICS: Total DLP (mGy-cm): 1325.28 FINDINGS: Lungs: Unremarkable. No consolidation. No masses. Pleural spaces: Unremarkable. No pneumothorax. No pleural effusion. Heart: Unremarkable. No cardiomegaly. No pericardial effusion. Lymph nodes: One or more calcified pulmonary, hilar and/or mediastinal lymph nodes are observed consistent with old granulomatous disease. Vasculature: Unremarkable. No aortic aneurysm. Bones/joints: Unremarkable. No acute fracture. Soft tissues: Unremarkable. PROCEDURE INFORMATION: Exam: CT Abdomen And Pelvis With Contrast Exam date and time: 02/06/2025 3:14 PM Age: 59 years old Clinical indication: Abdominal pain; Periumbilical; Chest pressure; Prior surgery; Surgery date: 3-7 days post-operative; Surgery type: Ventral hernia repair; Additional info: Post-hernia repair, severe abd pain, short of breath TECHNIQUE: Imaging protocol: Computed tomography of the abdomen and pelvis with contrast. Radiation optimization: All CT scans at this facility use at least one of these dose optimization techniques: automated exposure control; mA and/or kV adjustment per patient size (includes targeted exams where dose is matched to clinical indication); or iterative reconstruction. Contrast material: OMNIPAQUE 350; Contrast volume: 100 ml; Contrast route: INTRAVENOUS (IV); COMPARISON: CT abdomen pelvis wo con [id number] 07/10/2023 9:27 AM RADIATION DOSE METRICS: Total DLP (mGy-cm): 1325.28 FINDINGS: Liver: Normal. No mass. Gallbladder and biliary ducts: Normal. No calcified stones. No ductal dilation. Pancreas: Normal. No ductal dilation. Spleen: Normal. No splenomegaly. Adrenal glands: Normal. No mass. Kidneys and ureters: There is a staghorn calculus in the lower pole of the right kidney with a mixed density. The low-density component with rim calcification raises the possibility of a localized renal neoplasm about 14 mm in size. Moderate right hydronephrosis extends to the ureteropelvic junction without a calculus of the location suggesting the possibility of a stricture at that location. Stomach and bowel: Unremarkable. No obstruction. No mucosal thickening. Appendix: No evidence of appendicitis. Intraperitoneal space: Unremarkable. No free air. No significant fluid collection. Vasculature: Unremarkable. No abdominal aortic aneurysm. Lymph nodes: Unremarkable. No enlarged lymph nodes. Urinary bladder: Unremarkable as visualized. Reproductive: Unremarkable as visualized. Bones/joints: Unremarkable. No acute fracture. Soft tissues: Multiple small air-fluid levels are noted in the umbilical region just beneath the skin surface at the presumed location of recent ventral hernia repair. In the aggregate this collection measures approximately 5.5 cm craniocaudal, 3.2 cm AP and 6.7 transverse. Mild fat stranding noted superior to the collection in the adipose tissue of the abdominal wall. CT/CT chest abdpel w/*[id number] IMPRESSION: No acute findings. IMPRESSION: 1. Suspect postoperative abscess at the hernia repair site. 2. Moderate right hydronephrosis likely related to a stricture at the ureteropelvic junction. 3. Complex appearing staghorn calculus in the lower pole of the right kidney versus smaller calculus with adjacent renal neoplasm. Recommend non-emergent MRI without and with contrast. MRI is preferred for masses under 1.5 cm. COMMENTS: Consistent with the [employer]'s Incidental Findings Committee white paper (J Am Missy Radiol 2018): Any incidental renal lesion less than 1 cm or classified as too small to characterize, or any incidental cystic renal lesion characterized as simple-appearing, is likely benign. No follow-up imaging is recommended for these lesions per consensus recommendations based on imaging criteria. REFERENCES: Kayli LÓPEZ, Management of the Incidental Renal Mass on CT: A White Paper of the ACR Incidental Findings Committee, JACR 2018.
[2025-02-06 14:53] VITALS: PULSE 87; O2SAT 98
--- NOTE | 2025-02-06 14:55 | W.ED.ABDPA2 ---
HPI - Abdominal Pain General: Chief Complaint: Abdominal Pain Stated Complaint: post op--sharp pain in leg, sob Time Seen by Provider: 02/06/25 14:33 Source: patient Mode of arrival: ambulatory Limitations: no limitations History of Present Illness: Patient is a 59-year-old male who presents the emergency department complaining of abdominal pain for the past few days. On 02/02 he had umbilical hernia repair with Dr. Roberto gutierres at [facility], states that since he has developed significant bruising in his abdomen and pain that he is currently rating an 8/10. States the pain radiates into his groin and he has knots in his groin. No fevers reported, he feels nauseous but has not vomited. No changes in bowel or bladder habit. He does state that he has been taking Sundown for the pain with not much relief. No chest pain, is reporting some shortness of breath but he does have history of COPD. Vitals are stable at this time, overall nontoxic-appearing. MD elicited complaint: abdominal pain Onset (ago): day(s) Pain Consistency: constant Location: Periumbilical Severity: severe Pain scale (0-10): 8 Quality: fullness and sharp Radiation: none Context: recent surgery/procedure Associated Symptoms: Reports nausea; Denies change in stool character, chills, constipation, diarrhea, dysuria, fever(s), hematochezia and vomiting Treatments prior to arrival: prescription analgesics Related Data Home Medications ?Medication ?Instructions ?Recorded ?Confirmed montelukast 10 mg tablet 10 mg PO QAM 04/16/22 02/06/25 (Singulair) pantoprazole 40 mg tablet,delayed 40 mg PO QAM 04/16/22 02/06/25 release (Protonix) fenofibrate nanocrystallized 145 145 mg PO BEDTIME 01/10/23 02/06/25 mg tablet albuterol sulfate 90 mcg/actuation 2 inh inhalation Q6H PRN shortness 07/10/23 02/06/25 aerosol inhaler of breath or wheezing lisinopril 20 mg tablet 20 mg PO BID 07/10/23 02/06/25 divalproex 250 mg tablet,extended 750 mg PO BEDTIME 02/02/25 02/06/25 release 24 hr (Depakote ER) ibuprofen 800 mg tablet 800 mg PO Q8H 02/06/25 02/06/25 omeprazole 40 mg capsule,delayed 40 mg PO DAILY 02/06/25 02/06/25 release rosuvastatin 40 mg tablet 40 mg PO BEDTIME 02/06/25 02/06/25 Previous Rx's ?Medication ?Instructions ?Recorded aripiprazole 30 mg tablet 30 mg PO BEDTIME #30 tabs 10/04/24 topiramate 50 mg tablet 50 mg PO QAM 30 days #30 tabs 10/04/24 buspirone 5 mg tablet 5 mg PO BID PRN anxiety 30 days 11/29/24 #60 tabs acetaminophen 300 mg-codeine 30 mg 1 tab PO Q8H PRN pain 10 days #30 02/02/25 tablet tabs albuterol sulfate 90 mcg/actuation 1 inh inhalation Q6H PRN shortness 02/06/25 aerosol inhaler of breath or wheezing #6.7 grams clindamycin HCl 300 mg capsule 300 mg PO BID 10 days #20 caps 02/06/25 Allergies Allergy/AdvReac Type Severity Reaction Status Date / Time Penicillins Allergy Unknown unknown Verified 02/06/25 14:40 Review of Systems General: Reports: 10 or more systems reviewed and unremarkable except in HPI and below Const: Denies: fever(s), chills, change in appetite, change in weight or diaphoresis ENMT: Denies: throat pain or hoarseness Card: Denies: chest pain, palpitations or lightheadedness Resp: Reports: dyspnea; Denies: productive cough or wheezing GI: Reports: abdominal pain and nausea; Denies: vomiting, diarrhea, constipation, change in stool character or hematochezia : Denies: flank pain, difficulty urinating, dysuria, urinary frequency or urinary urgency Musc: Denies: neck pain or back pain Skin/Breast: Denies: rash or new lesions Neuro: Denies: headache(s) or dizziness PFSH ED PFSH: Medical History Psychiatric care Nicotine dependence, cigarettes, with other nicotine-induced disorders Mild intellectual disabilities Bipolar affective disorder, depressed, severe, with psychotic behavior Social History Smoking and tobacco/nicotine status: never used tobacco/nicotine Physical Exam Const: COMMON NORMALS: no acute distress, patient oriented x3, no limitations, alert and well nourished GENERAL APPEARANCE: cooperative and comfortable ORIENTATION/CONSCIOUSNESS: Yes awake OTHER: Nontoxic-appearing Neck/C-Spine: COMMON NORMALS: full ROM, supple, no meningeal signs and no JVD Resp: COMMON NORMALS: normal respiratory effort, No retractions and No use of accessory muscles AUSCULTATION: no crackles, no rales, no rhonchi and wheezes expiratory wheezes, inspiratory wheezes and throughout Cardio: COMMON NORMALS: no JVD, regular rate, regular rhythm, No gallops present (Cardio), No clicks present (Cardio), No murmurs present (Cardio), No rub (Cardio) and Peripheral pulses 2+ throughout RATE: regular rate RHYTHM: regular rhythm PERIPHERAL PULSES: Peripheral pulses 2+ throughout GI: COMMON NORMALS: No hepatosplenomegaly present and no masses AUSCULTATION: Yes normoactive bowel sounds PALPATION: No Guarding due to palpation present (GI), No Rigid due to palpation and Yes No hepatosplenomegaly present RECTAL EXAM: Yes deferred OTHER: Central obesity, tender to palpation periumbilically into the bilateral lower quadrants. Large amount of ecchymosis, and bandage covering incision. No active drainage or bleeding from incision. : COMMON NORMALS: Yes no CVA tenderness BLADDER/KIDNEY EXAM: Yes no CVA tenderness Back/Pelvis: COMMON NORMALS: no CVA tenderness Extremity: COMMON NORMALS: normal to inspection and full ROM Neuro: COMMON NORMALS: patient oriented x3, moves all extremities, no focal motor deficits and no sensory deficits noted SENSORIUM/ORIENTATION: Yes alert MENINGEAL SIGNS: Yes no meningeal signs Psych: COMMON NORMALS: mental status grossly normal, cooperative and speech normal SPEECH: Yes normal speech Skin: COMMON NORMALS: no rashes or lesions noted GENERAL SKIN EXAM: no rashes or lesions noted Course Vital Signs: Vital signs: Vital Signs Temperature 97.8 F 02/06/25 14:37 Pulse Rate 77 02/06/25 16:21 Respiratory Rate 16 02/06/25 16:21 Blood Pressure 153/101 02/06/25 14:37 Pulse Oximetry 97 02/06/25 16:21 Oxygen Delivery Me thod Room Air 02/06/25 14:37 MDM - Abdominal Pain Medical Decision Making Patient presenting status post umbilical hernia repair on 02/02, stating he is having abdominal pain and swelling in his groin. No palpable lymph nodes or swelling of the groin was noted, however to the incision there was surrounding ecchymosis and tender to palpation, but no active bleeding or drainage. Overall nontoxic-appearing and he had no symptoms of fever or nausea/vomiting. His lab work was all reassuring, no leukocytosis. Abdomen CT showing suspected postoperative abscess at hernia repair site. For this I spoke to the patient's surgeon, Dr. Mejia, who states he will see the patient in the clinic either tomorrow or the next day and to start on antibiotics. Being that he is allergic to penicillin we will do clindamycin and I gave the patient strict return precautions. He states his pain is quite a bit better and he is also asking for refill on his inhaler for his COPD. He was short of breath and wheezy at exam but there are no acute findings on the chest CT. I do not suspect DVT at this time but being that he is postoperative and was reporting some swelling in his legs told him to monitor for any worsening of lower extremity symptoms. Lab Data 02/06/25 14:56 02/06/25 14:56 Labs/Radiology: Radiology Impressions Chest/Abdomen/Pelvis CT 02/06/25 14:47 IMPRESSION: No acute findings. IMPRESSION: 1. Suspect postoperative abscess at the hernia repair site. 2. Moderate right hydronephrosis likely related to a stricture at the ureteropelvic junction. 3. Complex appearing staghorn calculus in the lower pole of the right kidney versus smaller calculus with adjacent renal neoplasm. Recommend non-emergent MRI without and with contrast. MRI is preferred for masses under 1.5 cm. COMMENTS: Consistent with the [place] [employer]'s Incidental Findings Committee white paper (J Am Missy Radiol 2018): Any incidental renal lesion less than 1 cm or classified as too small to characterize, or any incidental cystic renal lesion characterized as simple-appearing, is likely benign. No follow-up imaging is recommended for these lesions per consensus recommendations based on imaging criteria. REFERENCES: Kayli LÓPEZ, Management of the Incidental Renal Mass on CT: A White Paper of the ACR Incidental Findings Committee, JACR 2018. Laboratory Results WBC 9.40 10^3/uL (3.29-11.43) 02/06/25 14:56 RBC 4.14 10^6/uL (3.85-5.65) 02/06/25 14:56 Hgb 12.40 g/dL (11.27-16.99) 02/06/25 14:56 Hct 38.0 % (37-53) 02/06/25 14:56 MCV 91.8 fl (82-101) 02/06/25 14:56 MCH 30.0 pg (27-33) 02/06/25 14:56 MCHC 32.6 g/dL (30-55) 02/06/25 14:56 RDW 12.8 % (12.1-15.1) 02/06/25 14:56 Plt Count 208 10^3/cmm (157-399) 02/06/25 14:56 MPV 10.2 fL (7.4-10.4) 02/06/25 14:56 Neut % (Auto) 62.2 % 02/06/25 14:56 Lymph % (Auto) 23.6 % 02/06/25 14:56 Beckham % (Auto) 8.1 % 02/06/25 14:56 Eos % (Auto) 4.6 % 02/06/25 14:56 Baso % (Auto) 0.9 % 02/06/25 14:56 Neut # (Auto) 5.85 10^3/uL (1.8-7.7) 02/06/25 14:56 Lymph # (Auto) 2.2 10^3/uL (0.8-4.8) 02/06/25 14:56 Beckham # (Auto) 0.8 10^3/uL (0.2-0.9) 02/06/25 14:56 Eos # (Auto) 0.4 10^3/uL (0.0-0.8) 02/06/25 14:56 Baso # (Auto) 0.1 10^3/uL (0.0-0.1) 02/06/25 14:56 Nucleated RBC % (auto) 0 % 02/06/25 14:56 Nucleated RBCs # 0.0 /100WBC 02/06/25 14:56 Sodium 140 mmol/L (136-145) 02/06/25 14:56 Potassium 3.9 mmol/L (3.5-5.1) 02/06/25 14:56 Chloride 105 mmol/L (98-107) 02/06/25 14:56 Carbon Dioxide 24 mmol/L (22-29) 02/06/25 14:56 Anion Gap 14.9 (5-19) 02/06/25 14:56 BUN 16 mg/dL (8-23) 02/06/25 14:56 Creatinine 0.9 mg/dL (0.7-1.2) 02/06/25 14:56 GFR Calculation 86.1 mL/min (90-130) L 02/06/25 14:56 Glucose 106 mg/dL (65-115) 02/06/25 14:56 Calculated Osmolality 292 mOsm/kg (285-295) 02/06/25 14:56 Calcium 8.9 mg/dL (8.5-10.5) 02/06/25 14:56 Total Bilirubin 0.3 mg/dL (0.15-1.2) 02/06/25 14:56 AST 18 U/L (0-40) 02/06/25 14:56 ALT 14 U/L (0-41) 02/06/25 14:56 Alkaline Phosphatase 103 U/L (40-130) 02/06/25 14:56 Total Protein 6.4 g/dL (6.6-8.7) L 02/06/25 14:56 Albumin 3.6 g/dL (3.5-5.2) 02/06/25 14:56 Globulin 2.8 g/dL (1.3-4.6) 02/06/25 14:56 Lipase 15 U/L (13-60) 02/06/25 14:56 Urine Color Yellow (Yellow) 02/06/25 15:29 Urine Appearance Clear (CLEAR) 02/06/25 15:29 Urine pH 7.5 (5-7) 02/06/25 15:29 Ur Specific [place] 1.009 (1.005-1.030) 02/06/25 15:29 Urine Protein Negative (Negative) 02/06/25 15:29 Urine Glucose (UA) Negative (Normal) 02/06/25 15:29 Urine Ketones Negative (Negative) 02/06/25 15: Urine Blood Negative (Negative) 02/06/25 15:29 Urine Nitrate Negative (Negative) 02/06/25 15:29 Urine Bilirubin Negative (Negative) 02/06/25 15:29 Urine Urobilinogen 1.0 mg/dL (Negative) 02/06/25 15:29 Ur Leukocyte Esterase Negative (Negative) 02/06/25 15:29 Urine RBC 0-2 /hpf (0-2) 02/06/25 15:29 Urine WBC 0-5 /hpf (0-5) 02/06/25 15:29 Ur Squamous Epith Cells 0-5 /hpf (0-5) 02/06/25 15:29 Amorphous Sediment Not Reportable 02/06/25 15:29 Urine Bacteria None seen /hpf (NONE) 02/06/25 15:29 Hyaline Casts 0-4 /lpf H 02/06/25 15:29 All radiology interpretation(s) finalized by discharge Discharge Plan Discharge Patient Disposition: Home Clinical Impression: Incisional abscess Condition: Stable Prescriptions: New clindamycin HCl 300 mg capsule 300 mg PO BID 10 Days Qty: 20 0RF albuterol sulfate 90 mcg/actuation HFA aerosol inhaler 1 inh inhalation Q6H PRN (Reason: shortness of breath or wheezing) Qty: 6.7 0RF No Action montelukast [Singulair] 10 mg tablet 10 mg PO QAM pantoprazole [Protonix] 40 mg tablet,delayed release (DR/EC) 40 mg PO QAM aripiprazole 30 mg tablet 30 mg PO BEDTIME Qty: 30 6RF topiramate 50 mg tablet 50 mg PO QAM 30 Days Qty: 30 6RF buspirone 5 mg tablet 5 mg PO BID PRN (Reason: anxiety) 30 Days Qty: 60 6RF fenofibrate nanocrystallized 145 mg tablet 145 mg PO BEDTIME lisinopril 20 mg tablet 20 mg PO BID albuterol sulfate 90 mcg/actuation HFA aerosol inhaler 2 inh inhalation Q6H PRN (Reason: shortness of breath or wheezing) divalproex [Depakote ER] 250 mg tablet extended release 24 hr 750 mg PO BEDTIME acetaminophen-codeine 300-30 mg tablet 1 tab PO Q8H PRN (Reason: pain) 10 Days Qty: 30 0RF ibuprofen 800 mg tablet 800 mg PO Q8H omeprazole 40 mg capsule,delayed release(DR/EC) 40 mg PO DAILY rosuvastatin 40 mg tablet 40 mg PO BEDTIME Discharge Orders: Discharge ED (Routine); Ordered 02/06/25 Ordered By: Douglas Amador Referrals: Noemi Washburn [Primary Care Provider, Nurse Practitioner] Patient Instructions: Patient Portal & Leny Instructions Activity Restrictions/Additional Instructions: Discharge Instructions: Abscess Diagnosis: Surgical incision abscess, status post umbilical hernia repair (post-op day 4). Treatment: Incision and drainage performed. Clindamycin 300 mg PO twice daily for 10 days initiated due to allergy to amoxicillin-clavulanate. Antibiotic Rationale: Clindamycin is recommended for outpatient management of skin and soft tissue infections, including abscesses, particularly in penicillin-allergic patients and when MRSA is a consideration.[1]https://OpenDoors.su.TweetMySong.com.com/cristiana/article-lookup/doi/10.1093/cristiana/hmn700[2]https://www.nejm.org/doi/full/10.1056/HDTLpx0037699[3]https://[facility].nih.gov/dailyRegisterPatient/drugInfo.cfm?setid=[id number] Clinical trials demonstrate improved cure rates and reduced recurrence with adjunctive clindamycin following incision and drainage.[2]https://www.nejm.org/doi/full/10.1056/KUOIjo0104624 Instructions: - Medication: Take clindamycin 300 mg by mouth every 12 hours for 10 days. Complete the full course unless otherwise directed. - Common side effects include diarrhea, nausea, and rash. Rarely, clindamycin can cause severe diarrhea due to Clostridioides difficile infection; monitor for this especially in older adults.[3]https://[facility].nih.gov/dailymed/drugInfo.cfm?setid=bb1c6x02-[email or web address]-k4h578x4023v[4]https://[place].nih.gov/dailyRegisterPatient/drugInfo.cfm?setid=[email or web address] - If you develop severe or persistent diarrhea, stop the medication and seek medical attention immediately. - Wound Care: Keep the incision site clean and dry. Change dressings as instructed. Monitor for increasing redness, swelling, or drainage. - Activity: Limit strenuous activity until cleared by your surgeon. Avoid heavy lifting. - Follow-Up: Schedule an appointment with your surgeon within 1?2 days for wound evaluation and ongoing management. Strict Return Precautions: Return to the emergency department immediately for any of the following: - Fever >38.5?C (101.3?F) - Rapidly increasing redness, swelling, or pain at the incision site - Spreading redness or induration >5 cm from the wound edge - Pus or foul-smelling drainage from the wound - Signs of systemic illness: chills, confusion, rapid heartbeat (>110 bpm), shortness of breath - Severe or persistent diarrhea, especially if associated with abdominal pain or blood in stool - Inability to tolerate oral intake or medications - Any new or concerning symptoms Additional Notes: - Laboratory results are reassuring; no evidence of systemic infection at this time. - Clindamycin dosage modification is not required for renal impairment; monitor for gastrointestinal side effects, especially in older adults.[4]https://[place].Scurri.gov/dailymed/drugInfo.cfm?setid=[email or web address]-6colxj47wm7f[3]https://[place].Scurri.gov/dailyRegisterPatient/drugInfo.cfm?setid=[id number] - If you experience any medication side effects or allergic reactions (rash, difficulty breathing), discontinue clindamycin and seek care. References: Management and antibiotic selection are based on the Infectious Diseases Society of [place] guidelines and recent randomized controlled trials.[1]https://academic.AbleSkyp.com/cristiana/article-lookup/doi/10.1093/cristiana/urn619[2]https://www.nejm.org/doi/full/10.1056/VIUSkx1369761[3]https://[place].Scurri.gov/dailymed/drugInfo.cfm?setid=[id number][4]https://dailymed.[facility]. nih.gov/dailymed/drugInfo.cfm?setid=[email or web address]-[email or web address] References Practice Guidelines for the Diagnosis and Management of Skin and Soft Tissue Infections: 2014 Update by the Infectious Diseases Society of Americahttps://academic.AbleSkyp.com/cristiana/article-lookup/doi/10.1093/cristiana/pet091. Mario DL, Sean AL, Coby HF, et al. Clinical Infectious Diseases : An Official Publication of the Infectious Diseases Society of [place]. 2014;59(2):147-59. doi:10.1093/cristiana/kxv000. A Placebo-Controlled Trial of Antibiotics for Smaller Skin Abscesseshttps://www.nejm.org/doi/full/10.1056/WXGJwg1951492. Markus RS, Fine LG, Bernadette L, et al. The [place] Journal of Medicine. 2017;376(26):5785-7082. doi:10.1056/XWBOty9978866. Cleocin Hydrochloridehttps://dailymed.[facility].nih.gov/dailymed/drugInfo.cfm?setid=[id number]. Food and Drug Administration. Updated date: 2024-12-23. Cleocin Phosphatehttps://dailymed.[facility].nih.gov/dailymed/drugInfo.cfm?setid=[email or web address]. Food and Drug Administration. Updated date: 2024-09-01. Print Language: [place] Coding Level of Care Code ED Die Cutter Apprentice for Myron Gonzales
[2025-02-06 15:03] LABS: Hematocrit 38.0 % (37-53); Hemoglobin 12.40 g/dL (11.27-16.99); Mean Corpuscular HGB Conc 32.6 g/dL (30-55); Mean Corpuscular Hemoglobin 30.0 pg (27-33); Mean Corpuscular Volume 91.8 fl (82-101); Nucleated Red Blood Cells % 0 %; Platelet Count 208 10^3/cmm (157-399); Red Blood Count 4.14 10^6/uL (3.85-5.65); White Blood Count 9.40 10^3/uL (3.29-11.43)
[2025-02-06] MEDS: iohexol 350 mg/mL 500 mL Btl (per mL) IV (15:17)
[2025-02-06 15:23] LABS: Alanine Aminotransferase 14 U/L (0-41); Albumin Level 3.6 g/dL (3.5-5.2); Alkaline Phosphatase 103 U/L (40-130); Anion Gap 14.9 (5-19); Aspartate Amino Transferase 18 U/L (0-40); Blood Urea Nitrogen 16 mg/dL (8-23); Calcium 8.9 mg/dL (8.5-10.5); Carbon Dioxide 24 mmol/L (22-29); Chloride 105 mmol/L (98-107); Creatinine Clr Calc Pharmacy 101.1610; Globulin 2.8 g/dL (1.3-4.6); Glucose 106 mg/dL (65-115); Lipase 15 U/L (13-60); Osmolality Calculated 292 mOsm/kg (285-295); Potassium 3.9 mmol/L (3.5-5.1); Sodium 140 mmol/L (136-145); Total Protein 6.4 g/dL (6.6-8.7)
[2025-02-06 15:35] LABS: Glucose Urine UA Negative (Normal); Nitrate Urine Negative (Negative); Specific Gravity, Urine 1.009 (1.005-1.030)
[2025-02-06 15:36] VITALS: RESP 18
[2025-02-06] MEDS: ondansetron 2 mg/ML SDV 2 mL 4 MG IVP (15:36)
[2025-02-06] MEDS: morphine 4 mg/mL SDV 1 mL IVP (15:36)
[2025-02-06 15:40] LABS: Add Urine Microscopic? YES
[2025-02-06 16:21] VITALS: PULSE 77; RESP 16; O2SAT 97
[2025-02-06 16:36] VITALS: BP 146/98; PULSE 79; RESP 18; O2SAT 96
== END 2025-02-06 16:37 | disposition home or self-care (01) ==
PROVIDERS: Emergency Provider Physician Assistant; PCP Nurse Practitioner Family
DX: L02.214 Cutaneous abscess of groin (principal); Z98.890 Other specified postprocedural states
CPT/HCPCS: 36415; 71260; 74177; 80053; 81001; 83690; 85025; 96374; 96375; 99285; J2270; J2405

== ENCOUNTER → 2025-02-24 08:42 | Outpatient (BNVA) | payer MEDICARE, MEDICAID, SELFPAY | PROVIDERS: PCP Nurse Practitioner Family; Visit Provider Dermatology | DX: L72.0 Epidermal cyst (principal); L57.8 Other skin changes due to chronic exposure to nonionizing radiation; D18.01 Hemangioma of skin and subcutaneous tissue; D48.5 Neoplasm of uncertain behavior of skin; L57.0 Actinic keratosis | CPT/HCPCS: 11102; 17000; 99203 ==

== ENCOUNTER 2025-03-09 14:05 | Emergency (ER) | payer MEDICARE, MEDICAID, SELFPAY ==
[2025-03-09 14:16] VITALS: BP 138/81; PULSE 87; RESP 16; TEMP 36.7; O2SAT 96; BMI 27.8
--- NOTE | 2025-03-09 15:11 | W.ED.GIBLEED ---
HPI - GI Bleed General: Chief complaint: GI Bleed Stated complaint: post colonoscopy. rectal bleeding Time Seen by Provider: 03/09/25 15:11 History of Present Illness: 59-year-old man with a history of mild intellectual disability, bipolar affective disorder, seizure disorder, hypertension and GERD who presents to the emergency room with bright red bleeding per rectum. She had a colonoscopy in [place] yesterday and had some polyps removed apparently. He was told that if he had bleeding to come to the emergency room. He is having some bleeding his vitals are normal. He said it had some lower abdominal cramping. No nausea or vomiting. Related Data Home Medications ?Medication ?Instructions ?Recorded ?Confirmed montelukast 10 mg tablet 10 mg PO QAM 04/16/22 02/06/25 (Singulair) pantoprazole 40 mg tablet,delayed 40 mg PO QAM 04/16/22 02/06/25 release (Protonix) fenofibrate nanocrystallized 145 145 mg PO BEDTIME 01/10/23 02/06/25 mg tablet albuterol sulfate 90 mcg/actuation 2 inh inhalation Q6H PRN shortness 07/10/23 02/06/25 aerosol inhaler of breath or wheezing lisinopril 20 mg tablet 20 mg PO BID 07/10/23 02/06/25 divalproex 250 mg tablet,extended 750 mg PO BEDTIME 02/02/25 02/06/25 release 24 hr (Depakote ER) ibuprofen 800 mg tablet 800 mg PO Q8H 02/06/25 02/06/25 omeprazole 40 mg capsule,delayed 40 mg PO DAILY 02/06/25 02/06/25 release rosuvastatin 40 mg tablet 40 mg PO BEDTIME 02/06/25 02/06/25 Previous Rx's ?Medication ?Instructions ?Recorded aripiprazole 30 mg tablet 30 mg PO BEDTIME #30 tabs 10/04/24 topiramate 50 mg tablet 50 mg PO QAM 30 days #30 tabs 10/04/24 buspirone 5 mg tablet 5 mg PO BID PRN anxiety 30 days 11/29/24 #60 tabs albuterol sulfate 90 mcg/actuation 1 inh inhalation Q6H PRN shortness 02/06/25 aerosol inhaler of breath or wheezing #6.7 grams Allergies Allergy/AdvReac Type Severity Reaction Status Date / Time Penicillins Allergy Unknown unknown Verified 02/06/25 14:40 Review of Systems Narrative: Constitutional symptoms: Negative except as documented in HPI. Skin symptoms: Negative except as documented in HPI. Eye symptoms: Negative except as documented in HPI. ENMT symptoms: Negative except as documented in HPI. Respiratory symptoms: Negative except as documented in HPI. Cardiovascular symptoms: Negative except as documented in HPI. Gastrointestinal symptoms: Negative except as documented in HPI. Genitourinary symptoms: Negative except as documented in HPI. Musculoskeletal symptoms: Negative except as documented in HPI. Neurologic symptoms: Negative except as documented in HPI. Psychiatric symptoms: Negative except as documented in HPI. Endocrine symptoms: Negative except as documented in HPI. PFSH ED PFSH: Medical History (Updated 03/09/25 @ 15:37 by Violeta Tenorio MD) Psychiatric care Nicotine dependence, cigarettes, with other nicotine-induced disorders Mild intellectual disabilities Bipolar affective disorder, depressed, severe, with psychotic behavior Social History Smoking and tobacco/nicotine status: current every day tobacco/nicotine user cigarettes Physical Exam Narrative: EXAM NARRATIVE: General: Alert, no acute distress. Skin: Warm, dry. Head: Normocephalic, atraumatic. Neck: Supple, trachea midline. Eye: Extraocular movements are intact. Ears, nose, mouth and throat: mucosa moist. Cardiovascular: Regular, Normal peripheral perfusion. Respiratory: Lungs are clear to auscultation, respirations are non-labored, breath sounds are equal, Symmetrical chest wall expansion. Gastrointestinal: Soft, Nontender, Non distended Musculoskeletal: Normal ROM, no deformity. Neurological: Alert and oriented, No focal neurological deficit observed. Psychiatric: Cooperative, appropriate mood & affect. Course Vital Signs: Vital signs: Vital Signs Temperature 98.0 F 03/09/25 14:16 Pulse Rate 87 03/09/25 14:16 Respiratory Rate 16 03/09/25 14:16 Blood Pressure 138/81 03/09/25 14:16 Pulse Oximetry 96 03/09/25 14:16 Oxygen Delivery Me thod Room Air 03/09/25 14:16 MDM - GI Bleed Medical Decision Making Medical decision making: Differential diagnosis for patient who presents with hematochezia/bright red blood per rectum including but not limited to and based on the above HPI, review of systems and physical exam: Internal hemorrhoid bleeding, diverticular bleeding, irritated colonic mucosa. This is most often not life-threatening. Main concerns would be for anemia. Also if this were a very brisk upper GI bleed there might be an elevation in the BUN. But likely this is lower GI bleeding. Orders placed to evaluate differential diagnosis based on the above differential, HPI and physical exam Lab Review: Laboratory results were reviewed and interpreted by myself the emergency room physician. No leukocytosis. No anemia. Hemoglobin is 12.2 which is exactly what has been the last several times has been checked. No renal failure. I reviewed the patient's medical record. Reexamination: Patient remained stable. No increased work of breathing. No altered mental status. No focal motor deficits. Assessment and plan: Rectal bleeding after colonoscopy - Discharged home - Discussed plan with patient. Answered any questions. - Evaluation and treatment of this problem were appropriate in the emergency setting. Lab Data 03/09/25 15:08 03/09/25 15:08 Laboratory Results WBC 8.74 10^3/uL (3.29-11.43) 03/09/25 15:08 RBC 4.11 10^6/uL (3.85-5.65) 03/09/25 15:08 Hgb 12.20 g/dL (11.27-16.99) 03/09/25 15:08 Hct 38.4 % (37-53) 03/09/25 15:08 MCV 93.4 fl (82-101) 03/09/25 15:08 MCH 29.7 pg (27-33) 03/09/25 15:08 MCHC 31.8 g/dL (30-55) 03/09/25 15:08 RDW 12.9 % (12.1-15.1) 03/09/25 15:08 Plt Count 182 10^3/cmm (157-399) 03/09/25 15:08 MPV 10.6 fL (7.4-10.4) H 03/09/25 15:08 Neut % (Auto) 56.6 % 03/09/25 15:08 Lymph % (Auto) 26.8 % 03/09/25 15:08 [place] % (Auto) 9.7 % 03/09/25 15:08 Eos % (Auto) 5.5 % 03/09/25 15:08 Baso % (Auto) 0.8 % 03/09/25 15:08 Neut # (Auto) 4.95 10^3/uL (1.8-7.7) 03/09/25 15:08 Lymph # (Auto) 2.3 10^3/uL (0.8-4.8) 03/09/25 15:08 [place] # (Auto) 0.9 10^3/uL (0.2-0.9) 03/09/25 15:08 Eos # (Auto) 0.5 10^3/uL (0.0-0.8) 03/09/25 15:08 Baso # (Auto) 0.1 10^3/uL (0.0-0.1) 03/09/25 15:08 Nucleated RBC % (auto) 0 % 03/09/25 15:08 Nucleated RBCs # 0.0 /100WBC 03/09/25 15:08 Sodium 144 mmol/L (136-145) 03/09/25 15:08 Potassium 3.8 mmol/L (3.5-5.1) 03/09/25 15:08 Chloride 109 mmol/L (98-107) H 03/09/25 15:08 Carbon Dioxide 26 mmol/L (22-29) 03/09/25 15:08 Anion Gap 12.8 (5-19) 03/09/25 15:08 BUN 13 mg/dL (8-23) 03/09/25 15:08 Creatinine 0.8 mg/dL (0.7-1.2) 03/09/25 15:08 GFR Calculation 98.6 mL/min (90-130) 03/09/25 15:08 Glucose 116 mg/dL (65-115) H 03/09/25 15:08 Calculated Osmolality 299 mOsm/kg (285-295) H 03/09/25 15:08 Calcium 8.9 mg/dL (8.5-10.5) 03/09/25 15:08 Total Bilirubin 0.2 mg/dL (0.15-1.2) 03/09/25 15:08 AST 17 U/L (0-40) 03/09/25 15:08 ALT 15 U/L (0-41) 03/09/25 15:08 Alkaline Phosphatase 112 U/L (40-130) 03/09/25 15:08 Total Protein 6.7 g/dL (6.6-8.7) 03/09/25 15:08 Albumin 4.2 g/dL (3.5-5.2) 03/09/25 15:08 Globulin 2.5 g/dL (1.3-4.6) 03/09/25 15:08 No radiology studies performed this visit Discharge Plan Discharge Patient Disposition: Home Clinical Impression: Melena Condition: Stable Prescriptions: No Action montelukast [Singulair] 10 mg tablet 10 mg PO QAM pantoprazole [Protonix] 40 mg tablet,delayed release (DR/EC) 40 mg PO QAM aripiprazole 30 mg tablet 30 mg PO BEDTIME Qty: 30 6RF topiramate 50 mg tablet 50 mg PO QAM 30 Days Qty: 30 6RF buspirone 5 mg tablet 5 mg PO BID PRN (Reason: anxiety) 30 Days Qty: 60 6RF fenofibrate nanocrystallized 145 mg tablet 145 mg PO BEDTIME lisinopril 20 mg tablet 20 mg PO BID albuterol sulfate 90 mcg/actuation HFA aerosol inhaler 2 inh inhalation Q6H PRN (Reason: shortness of breath or wheezing) divalproex [Depakote ER] 250 mg tablet extended release 24 hr 750 mg PO BEDTIME ibuprofen 800 mg tablet 800 mg PO Q8H omeprazole 40 mg capsule,delayed release(DR/EC) 40 mg PO DAILY rosuvastatin 40 mg tablet 40 mg PO BEDTIME albuterol sulfate 90 mcg/actuation HFA aerosol inhaler 1 inh inhalation Q6H PRN (Reason: shortness of breath or wheezing) Qty: 6.7 0RF Discharge Orders: Discharge ED (Routine); Ordered 03/09/25 Ordered By: Violeta Tenorio Referrals: Noemi Washburn [Primary Care Provider, Nurse Practitioner] Discharge Diet: As Directed Discharge Activity: Increase activity as tolerated Patient Instructions: Rectal Bleeding (ED), Opioid Safety, Pain Management, Patient Portal & Leny Instructions Activity Restrictions/Additional Instructions: Thank you for choosing [facility] for your healthcare needs today. You have been screened and evaluated and felt safe for discharge. Health conditions do change or evolve sometimes and as such it is important that you follow up with your Primary Doctor to be re checked, 3-5 days is a general good time frame for follow up. You are always welcome to return to the ED for re assessment if your symptoms are worsening or you have new concerns Print Language: Lao Coding Level of Care Code ED [employer] for Myron Gonzales
[2025-03-09 15:18] LABS: Hematocrit 38.4 % (37-53); Hemoglobin 12.20 g/dL (11.27-16.99); Mean Corpuscular HGB Conc 31.8 g/dL (30-55); Mean Corpuscular Hemoglobin 29.7 pg (27-33); Mean Corpuscular Volume 93.4 fl (82-101); Nucleated Red Blood Cells % 0 %; Platelet Count 182 10^3/cmm (157-399); Red Blood Count 4.11 10^6/uL (3.85-5.65); White Blood Count 8.74 10^3/uL (3.29-11.43)
[2025-03-09 15:33] LABS: Alanine Aminotransferase 15 U/L (0-41); Albumin Level 4.2 g/dL (3.5-5.2); Alkaline Phosphatase 112 U/L (40-130); Anion Gap 12.8 (5-19); Aspartate Amino Transferase 17 U/L (0-40); Blood Urea Nitrogen 13 mg/dL (8-23); Calcium 8.9 mg/dL (8.5-10.5); Carbon Dioxide 26 mmol/L (22-29); Chloride 109 mmol/L (98-107); Creatinine Clr Calc Pharmacy 116.3256; Globulin 2.5 g/dL (1.3-4.6); Glucose 116 mg/dL (65-115); Osmolality Calculated 299 mOsm/kg (285-295); Potassium 3.8 mmol/L (3.5-5.1); Sodium 144 mmol/L (136-145); Total Protein 6.7 g/dL (6.6-8.7)
[2025-03-09 15:43] VITALS: BP 128/80; PULSE 82; O2SAT 96
[2025-03-09 16:25] LABS: INR 0.97 (0.8-1.2); Prothrombin Time 13.60 SECONDS (12.1-14.9)
== END 2025-03-09 15:44 | disposition home or self-care (01) ==
PROVIDERS: Emergency Medicine; Emergency Provider Emergency Medicine; PCP Nurse Practitioner Family
DX: K92.1 Melena (principal); Z98.890 Other specified postprocedural states; F17.210 Nicotine dependence, cigarettes, uncomplicated
CPT/HCPCS: 36415; 80053; 85025; 85610; 99283

== ENCOUNTER → 2025-03-11 08:18 | Outpatient (BNVA) | payer MEDICARE, MEDICAID, SELFPAY | PROVIDERS: PCP Nurse Practitioner Family; Visit Provider Student in an Organized Health Care Education/Training Program | DX: Z98.890 Other specified postprocedural states (principal) | CPT/HCPCS: 99024 ==

== ENCOUNTER → 2025-03-21 12:59 | Outpatient (BNVA) | payer MEDICARE, MEDICAID, SELFPAY | PROVIDERS: PCP Nurse Practitioner Family; Visit Provider Dermatology | DX: C44.519 Basal cell carcinoma of skin of other part of trunk (principal) | CPT/HCPCS: 12032; 17313 ==

== ENCOUNTER 2025-03-24 08:26 | Outpatient (CLI) | payer MEDICARE, MEDICAID, SELFPAY ==
--- NOTE | 2025-03-24 08:31 | MR_ITS ---
WS: [id number] MRI ABDOMEN WITH AND WITHOUT CONTRAST. COMPARISON: CT 02/06/2025, 01/10/2023 Multiplanar, multisequence imaging is performed with and without contrast. Sagittal and axial T1 fat sat sequences post-MultiHance 19 cc IV. RIGHT kidney: Moderate hydronephrosis RIGHT kidney. Renal calyces and the central pelvis are dilated. Abrupt termination of the pelvic dilatation at the UP junction. Reidentified is a soft tissue mass filling a calyx of the lower pole RIGHT kidney. On the postcontrast imaging this mass does enhance measuring 11 x 12 mm. No additional areas of abnormal enhancement within the RIGHT kidney. LEFT kidney: Normal size. No obstruction of the LEFT kidney. No enhancing renal mass. Normal appearance of the liver and spleen. Normal pancreas. No pancreatic duct or common bile duct dilatation. Normal gallbladder. Normal adrenal glands. Lung bases are clear. The superior aspect of the recently described abdominal wall abscess is visualized. No abscess collection is identified but that area is not completely included on this exam. Normal aorta. MR/MR abdomen wo/w con* [id number] IMPRESSION: 1. Soft tissue mass with enhancement in the lower pole RIGHT calyx measures 11 x 12 mm. No significant increase in size since 01/10/2023. Mass is new since . Recommend evaluation by urology. Low-grade neoplasm needs to be excluded. 2. Moderate RIGHT hydronephrosis secondary to a stricture at the UP junction.
[2025-03-24] MEDS: gadobenate dimeglumine 20 mL vial 19 ML IV (09:26)
== END 2025-03-24 08:27 | disposition home or self-care (01) ==
LOC: RAD 08:27
PROVIDERS: PCP Nurse Practitioner Family; Visit Provider Nurse Practitioner Family
DX: N20.0 Calculus of kidney (principal); N28.89 Other specified disorders of kidney and ureter; N13.30 Unspecified hydronephrosis
CPT/HCPCS: 74183; A9577

== ENCOUNTER → 2025-04-04 10:53 | Outpatient (BNVA) | payer MEDICARE, MEDICAID, SELFPAY | PROVIDERS: PCP Nurse Practitioner Family; Visit Provider Dermatology | DX: C44.519 Basal cell carcinoma of skin of other part of trunk (principal) | CPT/HCPCS: 99212 ==

== ENCOUNTER 2025-04-07 08:25 | Outpatient (CLI) | payer MEDICARE, MEDICAID, SELFPAY ==
--- NOTE | 2025-04-07 08:35 | MR_ITS ---
WS: [id number] MRI BRAIN WITH AND WITHOUT CONTRAST HISTORY: CONDUCTIVE HEARING LOSS COMPARISON: 08/28/2026, CT head 01/14/2011. TECHNIQUE: Multiplanar imaging performed through the brain with MultiHance 19 ml's IV. No acute infarcts are seen. [place]-white matter differentiation is well preserved. No prior infarcts or significant small vessel disease. Very mild cerebral atrophy. No ischemic changes in the john. There is motion artifact on the coronal T2 sequence. No significant hippocampal atrophy is identified. No susceptibility artifacts or prior lacunar infarcts. Ventricles and extra-axial spaces are normal. Clivus and pituitary gland are normal. Visualized posterior fossa and brainstem are also normal. Postcontrast images are significantly degraded by motion. Patient was unable to remain still for this examination. There is no large mass or mass effect. Dural venous sinuses are limited but no abnormality identified. No abnormality noted at the cerebellopontine angle or along the internal auditory canals on this exam. Paranasal sinuses: Mucous retention cyst floor the LEFT maxillary sinus. Mastoid air cells: Normal. Calvarium and scalp: Normal. MR/MR head wo/w con [id number] IMPRESSION: 1. No acute infarct or hemorrhage. 2. No significant small vessel disease or prior infarct. 3. Numerous sequences are significantly degraded by motion artifact. In partic ular the postcontrast images are limited. 4. No mass or abnormal enhancement at the cerebellopontine angles or along the internal auditory canals.
[2025-04-07] MEDS: gadobenate dimeglumine 20 mL vial 19 ML IV (09:43)
== END 2025-04-07 08:26 | disposition home or self-care (01) ==
LOC: RAD 08:28
PROVIDERS: PCP Nurse Practitioner Family; Visit Provider Nurse Practitioner Family
DX: H90.2 Conductive hearing loss, unspecified (principal); G31.9 Degenerative disease of nervous system, unspecified; R90.89 Other abnormal findings on diagnostic imaging of central nervous system; J34.1 Cyst and mucocele of nose and nasal sinus
CPT/HCPCS: 70553

== ENCOUNTER 2025-05-09 17:08 | Emergency (ER) | payer MEDICARE, SELFPAY ==
[2025-05-09 17:10] VITALS: BP 181/90; PULSE 99; TEMP 36.8; O2SAT 97
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
[2025-05-09] MEDS: iohexol 350 mg/mL 500 mL Btl (per mL) IV (18:11)
[2025-05-09 19:34] VITALS: BP 144/90; PULSE 99; O2SAT 98
--- OUTSIDE RECORDS SUMMARY | 2025-05-09 21:28 | XMS_ITS | Clinical Summary ---
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
== END 2025-05-09 19:35 | disposition home or self-care (01) ==
PROVIDERS: Emergency Provider Physician Assistant; PCP Nurse Practitioner Family
DX: S13.9XXA Sprain of joints and ligaments of unspecified parts of neck, initial encounter (principal); S29.8XXA Other specified injuries of thorax, initial encounter; V89.2XXA Person injured in unspecified motor-vehicle accident, traffic, initial encounter; F17.210 Nicotine dependence, cigarettes, uncomplicated
CPT/HCPCS: 71260; 72125; 73080; 74177; 99285